=== PATIENT | male | born 1960 | race African-American/Black ===

== ENCOUNTER 2016-08-11 11:57 | Emergency (ER) | payer SELFPAY ==
[2016-08-11] MEDS ORDERED: NEB-ALBUTEROL 2.5 MG/3 ML INH ONE (15:38)
== END 2016-08-11 17:06 | disposition home or self-care (01) ==
LOC: ER 11:57
DX: J45.901 Unspecified asthma with (acute) exacerbation (principal); J10.1 Influenza due to other identified influenza virus with other respiratory manifestations; J00 Acute nasopharyngitis [common cold]; J02.9 Acute pharyngitis, unspecified; J40 Bronchitis, not specified as acute or chronic; Z79.899 Other long term (current) drug therapy; Z87.891 Personal history of nicotine dependence
CPT/HCPCS: 36415; 71010; 80053; 82553; 83880; 84484; 85025; 87804; 93005; 94640